=== PATIENT | male | born 1995 | race Caucasian/White ===

== ENCOUNTER 2016-11-26 15:19 | Emergency (ER) | payer BC ==
[~2016-11-26] VITALS: Wt 72.0 kg
[~2016-11-26 15:19] MED LIST: CYCL-319 PO; HYDR-3498 PO; NAPR-260 PO
[2016-11-26] MEDS ORDERED: IBUPROFEN 600 MG TAB PO ONE (18:30)
--- NOTE | 2016-11-26 19:12 | RADRPT ---
PROCEDURE: XR thoracic Spine. CLINICAL INDICATION: Back pain. Fall TECHNIQUE: AP and lateral views of the thoracic spine were obtained. COMPARISON: No prior studies are available for comparison. FINDINGS: The thoracic kyphosis is maintained. No fracture or subluxation is seen. The osseous structures are well mineralized. The vertebral body and disc spaces are normal in appearance. The posterior eleme nts are unremarkable. The soft tissues appear normal. IMPRESSION: Unremarkable thoracic spine. RPTAT: [facility] Physician Jose Luis Date Time Electronically viewed and signed by Physician Jose Luis on 11/26/2016 19:12 /
--- NOTE | 2016-11-26 19:12 | RADRPT ---
PROCEDURE: XR L-Spine. CLINICAL INDICATION: Low back pain. Fall TECHNIQUE: AP and lateral views of the lumbar spine were obtained. COMPARISON: None FINDINGS: The lateral view is suboptimal. The lumbar lordosis is maintained. The vertebral body and disk spa ce heights are normal. No acute fracture or subluxation is seen. No paravertebral soft tissue abno rmality is seen. IMPRESSION: Unremarkable lumbar spine series. RPTAT: [facility] Physician Jose Luis Date Time Electronically viewed and signed by Physician Jose Luis on 11/26/2016 19:11 /
[2016-11-26] MEDS ORDERED: IBUP-1542 PO (19:16)
[2016-11-26] MEDS ORDERED: ORPH100T PO (19:16)
--- NOTE | 2016-11-26 19:16 | ERD ---
ER Documentation Chief Complaint Date/Time DATE: 11/26/16 TIME: 19:13 Chief Complaint BACK PAIN AFTER INJURY YESTERDAY HPI This is a 21-year-old male that presents to the ER after he fell yesterday on 9: 30 PM. Patient fell onto his knees, his hips fell forward and he felt his back crack. Patient states that pain is rated as 8 out of 10 is constant and throbbing in quality. It is worse whenever he moves. Patient has not tried any pain medication. He does have a past medical history of scoliosis. He denies any fevers or chills. He denies any urine or bowel incontinence. He denies any saddle like anesthesia denies any IV drug use. ROS 12 point review of systems was done, all negative except per HPI. Medications Home Meds Active Scripts Cyclobenzaprine Hcl* (Cyclobenzaprine Hcl*) 10 Mg Tablet, 10 MG PO TID, #15 TAB Prov:RADHA GRIJALVA PA-C 12/03/15 Naproxen* (Naprosyn*) 500 Mg Tablet, 500 MG PO BID Y for PAIN AND/OR INFLAMMATION, #30 TAB Prov:RADHA GRIJALVA PA-C 12/03/15 Hydrocodone Bit-Acetaminophen* ([place]*) 5-325 Mg Tab, 1 TAB PO Q6 Y for PAIN, # 7 TAB Prov:RADHA GRIJALVA PA-C 12/03/15 Allergies Allergies: Coded Allergies: No Known Allergy (Unverified , 12/02/15) PMhx/Soc History of Surgery: No Anesthesia Reaction: No Hx Neurological Disorder: No Hx Respiratory Disorders: No Hx Cardiac Disorders: No Hx Psychiatric Problems: No Hx Miscellaneous Medical Probl: No Hx Alcohol Use: No Hx Substance Use: No Hx Tobacco Use: No Physical Exam Vitals Vital Signs Date Time Temp Pulse Resp B/P Pulse Ox O2 Delivery O2 Flow Rate FiO2 11/26/16 15:27 98.0 82 18 126/69 99 Physical Exam GENERAL: The patient is well developed and appropriate for usual state of health , in no apparent distress. NECK: C-spine is soft and supple. There is no cervical lymphadenopathy. CHEST: Clear to auscultation bilaterally. There are no rales, wheezes or rhonchi. HEART: Regular rate and rhythm. No murmurs, clicks, rubs or gallops. ABDOMEN: Soft, nontender and nondistended. Good bowel sounds. No rebound or guarding. No gross peritonitis. No gross organomegaly or masses. No Ashby sign or McBurney point tenderness. No pulsatile abdominal mass. BACK: No midline or flank tenderness. Tender to palpation from L3-L5. Tense paraspinal muscles. Negative leg raise test. No step- offs. EXTREMITIES: Equal pulses bilaterally. There is no peripheral clubbing, cyanosis or edema. No focal swelling or erythema. Full range of motion. Grossly neurovascularly intact. NEURO: Alert and oriented. Cranial nerves II through XII are intact. Motor strength in all 4 extremities with 5/5 strength. Sensation grossly intact. Normal speech and gait. SKIN: There is no apparent rash or petechia. The skin is warm and dry. Results 24 hrs Current Medications Medications (Trade) Dose Ordered Sig/Yue Route PRN Reason Start Time Stop Time Status Last Admin Dose Admin Ibuprofen (Motrin) 600 mg ONCE ONCE PO 11/26/16 18:30 11/26/16 18:31 DC 11/26/16 18:29 Procedures/MDM Differential Diagnosis includes but is not limited to back strain, vertebral fracture, epidural abscess, cauda equina, herniated disc, AAA rupture, kidney stones, UTI, pyelonephritis. This is a 21-year-old male presents today after he fell forward landing on his knees and pushing his hips forward. At this time is no evidence of fracture or dislocation. Patient is neurovascularly intact. He is afebrile and well- appearing. Patient has a normal range of motion to bilateral extremities. He is neurovascularly intact. Patient will be sent with ibuprofen and with Norflex. He is to follow-up with his primary care doctor within 1-2 days return to ER sooner if symptoms worsen. My medical decision making shared with the patient he understands and agrees with plan. Departure Diagnosis: Primary Impression: Back pain Condition: Stable JOURDAN LIZAMA Nov 26, 2016 19:15
[2016-11-26 19:29] VITALS: BP 123/64; PULSE 84; RESP 18
== END 2016-11-26 19:30 | disposition home or self-care (01) ==
LOC: FTE 15:19
DX: S39.92XA Unspecified injury of lower back, initial encounter (principal); W18.39XA Other fall on same level, initial encounter; Y92.9 Unspecified place or not applicable
CPT/HCPCS: 72072; 72100; Z7502; Z7610

== ENCOUNTER 2017-08-29 11:36 | Emergency (ER) | END 2017-08-29 14:11 | disposition home or self-care (01) ==